=== PATIENT | female | born 1995 | race Caucasian/White ===

== ENCOUNTER 2019-08-12 10:24 | Emergency (ER) | payer OTHER ==
[2019-08-12 11:15] VITALS: BP 100/64
--- NOTE | 2019-08-12 12:08 | ED ---
Syncope/Near Syncope - HPI Summary HPI Summary: 23 yr old female with the complaint of syncope. The patient has had URI symptoms for the past three days. The patient complains of dizziness, worse upon standing. She has had runny nose, cough, post nasal drip. Her boyfriend states that she passed out twice yesterday and better with supine position. The patient denies CP, SOB. The patient has no other complaints. - History Of Current Complaint Chief Complaint: UCGeneralIllness Time Seen by Provider: 08/12/19 11:43 - Allergies/Home Medications Allergies/Adverse Reactions: Allergies Allergy/AdvReac Type Severity Reaction Status Date / Time No Known Allergies Allergy Verified 08/12/19 11:07 Home Medications: Home Medications Ibuprofen TAB* [Motrin TAB* 600 MG] 600 mg PO Q6H PRN 08/12/19 [History Confirmed 08/12/19] Labetalol TAB* [Trandate TAB*] 300 mg PO BID 08/12/19 [History Confirmed ] PMH/Surg Hx/FS Hx/Imm Hx Cardiovascular History: Reports: Hx Hypertension Respiratory History: Reports: Hx Asthma - as child - Surgical History Surgery Procedure, Year, and Place: [facility] Infectious Disease History: No Infectious Disease History: Denies: Traveled Outside the [place] in Last 30 Days - Family History Known Family History: Positive: None - Social History Alcohol Use: None Substance Use Type: Reports: None Smoking Status (MU): Light Every Day Tobacco Smoker Type: eCigarettes Review of Systems Constitutional: Negative Positive: Sore Throat, Nasal Discharge Negative: Palpitations, Chest Pain Positive: Cough. Negative: Shortness Of Breath All Other Systems Reviewed And Are Negative: Yes Physical Exam Triage Information Reviewed: Yes Vital Signs On Initial Exam: Initial Vitals Temp Pulse Resp BP Pulse Ox 99.7 F 103 20 100/64 99 08/12/19 11:08 08/12/19 11:08 08/12/19 11:08 08/12/19 11:08 08/12/19 11:08 Vital Signs Reviewed: Yes Appearance: Positive: Well-Appearing, No Pain Distress Skin: Positive: Warm, Skin Color Reflects Adequate Perfusion, Dry Head/Face: Positive: Normal Head/Face Inspection Eyes: Positive: EOMI, BRUNO ENT: Positive: Nasal congestion, TMs normal Neck: Positive: Nontender Respiratory/Lung Sounds: Positive: Clear to Auscultation, Breath Sounds Present Cardiovascular: Positive: RRR. Negative: Murmur Abdomen Description: Negative: Distended Musculoskeletal: Positive: Strength/ROM Intact Neurological: Positive: Sensory/Motor Intact, Alert, Oriented to Person Place, Time, CN Intact II-III, Normal Gait, Speech Normal Psychiatric: Positive: Normal Diagnostics - Vital Signs Vital Signs Temp Pulse Resp BP Pulse Ox 08/12/19 11:08 99.7 F 103 20 100/64 99 - Laboratory Lab Statement: Any lab studies that have been ordered have been reviewed, and results considered in the medical decision making process. - EKG 08/12/19 Cardiac Rate: NL EKG Rhythm: Sinus Rhythm - short LA ST Segment: Normal Ectopy: None Course/Dx Course Of Treatment: 23 yr old with SYNCOPE and URI symptoms. She has short LA. Advised ambulance transfer. Patient refused and signed out AMA. - Diagnoses Provider Diagnoses: Syncope, Shortened LA interval, URI (upper respiratory infection) Discharge ED - Sign-Out/Discharge Documenting (check all that apply): Patient Departure All imaging exams completed and their final reports reviewed: No Studies - Discharge Plan Condition: Stable Disposition: AGAINST MEDICAL ADVICE Referrals: No Primary Care Phys,NOPCP [Primary Care Provider] - - Billing Disposition and Condition Condition: STABLE Disposition: Against Medical Advice
== END 2019-08-12 12:04 | disposition left against medical advice (07) ==
LOC: UCCORT 10:24
DX: R55 Syncope and collapse (principal); R94.31 Abnormal electrocardiogram [ECG] [EKG]; J06.9 Acute upper respiratory infection, unspecified; I10 Essential (primary) hypertension
CPT/HCPCS: 93005; 99212; G0463